=== PATIENT | male | born 1950 | race Caucasian/White ===

== ENCOUNTER → 2016-12-31 | Day surgery (SDC) | payer BC ==
[~2016-12-31] VITALS: Ht 185.4 cm; Wt 94.2 kg
[~2016-12-31] MED LIST: CORDARONE,PACE200 MG PO; PROBIOTIC1 EAC1 PO; PROTONIX40 MG PO; XARELTO20 MG PO; ZOLOFT100 MG PO
--- NOTE | ~2016-12-31 | OR ---
PATIENT'S NAME: JACQUELYN JOHNSON [facility] AGE: 66 Y [address] ROOM: [place] [address] LOCATION: GEND ADMIT DATE: 12/31/2016 OR/Procedure Report DISCHARGE DATE: FAMILY PHYSICIAN: Ricci Ryder MD ATTENDING PHYSICIAN: Bobbi Hi SURGEON: Rj Romo MD HULL GRINDER: DATE OF PROCEDURE: 12/31/2016 ADDENDUM: Accession number was [id number]. Rectal polyp was removed with cold biopsy in addition to the sigmoid colon polyp, which was removed with snare cautery polypectomy. MD HOUSTON KATE/modl /[id number] d: 04/22/173 t: 04/25/17 1739, OPERATIVE SUMMARY
== END ==
LOC: GPOC 12-28 09:00 → GEND 06:45
PROC: 0DBK8ZX Excision of Ascending Colon, Via Natural or Artificial Opening Endoscopic, Diagnostic (ICD-10-PCS; principal; 2016-12-31)
PROC: 0DBN8ZX Excision of Sigmoid Colon, Via Natural or Artificial Opening Endoscopic, Diagnostic (ICD-10-PCS; 2016-12-31)
DX: D12.2 Benign neoplasm of ascending colon (principal); D12.5 Benign neoplasm of sigmoid colon; K62.1 Rectal polyp; K57.30 Diverticulosis of large intestine without perforation or abscess without bleeding; I48.91 Unspecified atrial fibrillation; Z79.899 Other long term (current) drug therapy
CPT/HCPCS: J1610; J2001; J7030